=== PATIENT | male | born 1975 | race Caucasian/White ===

== ENCOUNTER 2024-01-31 15:41 | Emergency (ER) | payer OTHER, SELFPAY ==
--- NOTE | 2024-01-31 15:46 | ED.GENMED ---
ED Provider Triage
<Fatoumata Epps PA-C - Last Filed: 01/31/24 15:52>
-
Patient seen by provider in Triage?: Seen in Triage
Attestation: A medical screening examination has been initiated by a qualified medical provider. Based on the assessment performed at this time, it has been determined that an emergent medical condition may exist and the patient has been informed
that further medical evaluation and possible additional diagnostic testing may be needed.
HPI: 48yoM here with L eye blurriness since waking up this morning. Had trouble focusing earlier. Has prescription glasses but cannot find them.
GENERAL: Alert , in no apparent distress
EYE: No visual abnormalities.
NECK: Trachea midline
ENT: No visible abnormalities.
LUNGS: No acute respiratory distress
NEUROLOGICAL: Alert and oriented
SKIN: Skin intact. No visible changes.
MUSCULOSKELETAL: Moving extremities normally
PSYCH: Normal and appropriate interaction.
This is a medical evaluation conducted in person to initiate diagnostic evaluation and provide initial therapeutics. Please see further documentation by the treating clinician.
CBC, CMP, CT head, and visual acuity ordered.
History of Present Illness
<Fatoumata Epps PA-C - Last Filed: 01/31/24 15:52>
General
Chief Complaint: Visual Problem
Time Seen by Provider: 01/31/24 19:48
<Victor Hugo Delacruz DO - Last Filed: 02/01/24 20:26>
General
Source: patient
History of Present Illness
History of Present Illness:
48-year-old male presents the emergency room complaining of blurred vision. He went to his family doctor who sent him to the emergency room here. Patient has been experiencing vision changes for the past 2 to 3 weeks. He has been intending to
call an partition notcher. Today the difficulty seeing seem worse. He therefore went to his family doctor. His family doctor told him that the problems seem to be double vision and recommended he come to the emergency room. Patient does not have
any significant headache. He has no other focal neurologic complaints. He is swallowing normally. He has no shortness of breath.
Phy Exam
&;Victor Hugo Delacruz DO - Last Filed: 02/01/24 20:26>
Physical Exam
Physical Exam:
General: Awake, Alert, Oriented X3. No acute distress.
Vitals: unremarkable
Head: Atraumatic
Eyes: Pupils equal, right eye appears to have a lateral rectus palsy. Intraocular pressures are normal (17 on the right, 16 on the left). Visual acuity 20/25 bilaterally. Anterior chamber appears clear.
Throat: Airway intact, no exudates
Neck: Trachea midline
Lungs: Clear and equal b/l
Heart: Regular rate, no murmurs
Abd: Soft, Nontender, No pulsatile mass
Neuro: Right-sided lateral rectus palsy, muscle strength equal bilaterally, cerebellar exam normal
Skin: Warm, dry, no rash
Extremities: pulses equal b/l, no edema
Course
<Fatoumata Epps PA-C - Last Filed: 01/31/24 15:52>
Orders/Labs/Results
Orders:
Orders
01/31/24 15:49
CT Head W/o Iv Contrast Urgent
Comment:
Reason For Exam: blurred vision
Visual Acuity- Treatment ONCE
01/31/24 15:56
Complete Blood Count/With Diff Urgent
Comprehensive Metabolic Panel Urgent
Abnormal Lab Results
01/31/24
15:56
Abs Immat Gran (auto) 0.1 H 10^3/uL
(0-0.05)
Absolute Monos (auto) 0.8 H 10^3/uL
(0.1-0.6)
BUN 21 H mg/dl
(9-20)
AST 73 H U/L
(17-59)
ALT 113 H U/L
(0-50)
01/31/24 15:56
01/31/24 15:56
Vital Signs
Initial and Last Documented VS:
Initial Vital Signs
Temp Pulse Resp Pulse Ox
97.9 F 85 18 98
01/31/24 15:46 01/31/24 15:46 01/31/24 15:46 01/31/24 15:46
Last Documented Vital Signs
Temp Pulse Resp BP Pulse Ox
97.9 F 75 18 149/95 96
01/31/24 15:46 01/31/24 21:19 01/31/24 21:19 01/31/24 21:19 01/31/24 21:19
Michellelt;Victor Hugo Delacruz, - Last Filed: 02/01/24 20:26>
Orders/Labs/Results
Orders:
Orders
01/31/24 15:49
CT Head W/o Iv Contrast Urgent
Comment:
Reason For Exam: blurred vision
Visual Acuity- Treatment ONCE
01/31/24 15:56
Complete Blood Count/With Diff Urgent
Comprehensive Metabolic Panel Urgent
Abnormal Lab Results
01/31/24
15:56
Abs Immat Gran (auto) 0.1 H 10^3/uL
(0-0.05)
Absolute Monos (auto) 0.8 H 10^3/uL
(0.1-0.6)
BUN 21 H mg/dl
(9-20)
AST 73 H U/L
(17-59)
ALT 113 H U/L
(0-50)
01/31/24 15:56
01/31/24 15:56
Vital Signs
Initial and Last Documented VS:
Initial Vital Signs
Temp Pulse Resp Pulse Ox
97.9 F 85 18 98
01/31/24 15:46 01/31/24 15:46 01/31/24 15:46 01/31/24 15:46
Last Documented Vital Signs
Temp Pulse Resp BP Pulse Ox
97.9 F 75 18 149/95 96
01/31/24 15:46 01/31/24 21:19 01/31/24 21:19 01/31/24 21:19 01/31/24 21:19
<Victor Hugo Delacruz DO - Last Filed: 02/01/24 20:26>
MDM/Problems Addressed
Differential Diagnosis Includes:
Glaucoma, diplopia from lateral rectus palsy, ophthalmologic myasthenia gravis, CVA
MDM/Problems Addressed:
Work appears unremarkable. Patient has no other focal neurologic deficits to suggest a central event. Intraocular pressures are normal. I do sense the patient has lateral rectus palsy on exam. Discussed with ophthalmology on-call, Dr. Ferrer and
she will have the patient seen in the office as soon as possible. Patient does not carry diagnosis of hypertension however he has moderate hypertension here in the emergency room. He tells me his primary care doctor has been monitoring his blood
pressure.
<Victor Hugo Delacruz DO - Last Filed: 02/01/24 20:26>
*Radiology
Radiology exam reviewed: radiology read reviewed
*Pulse Oximetry
Patient hypoxic: no
*Critical Care Note
Total Time (30-74mins, 75-104mins- exclusive of procedures): Not Applicable
ED Attending Note
<Fatoumata Epps PA-C - Last Filed: 01/31/24 15:52>
-
Portions of this chart may have been created with voice recognition software.� Occasional wrong word or��sound alike� substitutions may have occurred due to the inherent limitations of voice recognition software.
Discharge Plan
Departure
Patient Disposition: Home (Routine Discharge)
Date of Disposition: 01/31/24
Time of Disposition: 21:04
Patient with high blood pressure during this ER visit?: Yes
Condition: Good
Discharge Problem:
Diplopia, Lateral rectus muscle paralysis
Instructions: Double Vision (DC)
Referrals:
Aggie Ferrer MD [Active] -
Activity Restrictions/Additional Instructions:
I believe your vision change is related to abnormal movement of the muscles of your right eye. You need to follow up with a eye doctor for further evaluation. I have given you contact information for the eye doctor I spoke to deneen. Call first
thing in the morning and let the office know you were seen in the ER and Dr. Ferrer wanted you to be seen in the office as soon as possible. Your liver function tests area mildly elevated and should be rechecked by your doctor in the month or so.
Interventions
Interventions:
*Risk Screen - Suicide Last Done: 01/31/24 21:18
*General Assessment Last Done: 01/31/24 15:47
*Neglect/Abuse Screening Last Done: 01/31/24 21:18
*Nursing Disposition Last Done: 01/31/24 21:19
ED- Neurological Assessment Last Done: 01/31/24 21:18
Discharge Date and Time
Discharge Date/Time: 01/31/24 21:20
Print Language: THAI
[2024-01-31 15:49] VITALS: BP 156/102
[2024-01-31 16:05] LABS: % Basophils 0.9 % (0-2); % Eosinophils 2.6 % (0-6); % Immature Granulocytes 0.5 % (0-0.5); % Lymphocytes 24.1 % (20.5-51.1); % Monocytes 9.2 % (1.7-9.3); % Neutrophils 62.7 % (42.2-75.2); Absolute Basophils 0.1 10^3/uL (0-0.2); Absolute Eosinophils 0.2 10^3/uL (0-0.7); Absolute Immature Granulocytes 0.1 10^3/uL (0-0.05); Absolute Lymphocytes 2.2 10^3/uL (1.2-3.4); Absolute Monocytes 0.8 10^3/uL (0.1-0.6); Absolute Neutrophils 5.7 10^3/uL (1.4-6.5); Hematocrit 43.4 % (39.0-52.0); Mean Corp Hgb Conc. 34.6 g/dL (33.0-37.0); Mean Corpuscular Hgb 30.4 pg (27.0-31.0); Mean Platelet Volume 9.7 fL (7.4-10.4); Nucleated Red Blood Cells % 0 % (-); Platelet Count 282 10^3/uL (130-400); Red Blood Cell Count 4.93 10^6/uL (4.70-6.10); White Blood Cell Count 9.1 10^3/uL (4.8-10.8)
[2024-01-31 16:19] LABS: ALT (SGPT) 113 U/L (0-50); AST (SGOT) 73 U/L (17-59); Albumin 4.9 g/dl (3.5-5.0); Alkaline Phosphatase 75 U/L (38-126); Blood Urea Nitrogen 21 mg/dl (9-20); Calcium 9.2 mg/dl (8.4-10.2); Carbon Dioxide 29 mmol/L (22-30); Chloride 99 mmol/L (98-107); Glucose 96 mg/dl (70-99); Potassium 3.9 mmol/L (3.5-5.1); Sodium 140 mmol/L (135-145); Total Bilirubin 0.4 mg/dl (0.2-1.3); Total Protein 7.9 g/dl (6.3-8.2); eGFR > 60.00
[2024-01-31 21:19] VITALS: BP 149/95
== END 2024-01-31 21:20 | disposition home or self-care (01) ==
LOC: EMR 15:41
PROVIDERS: Physician Assistant; EMERGENCY PHYSICIAN Emergency Medicine; FAMILY PHYSICIAN Family Medicine
DX: H49.881 Other paralytic strabismus, right eye (principal); R03.0 Elevated blood-pressure reading, without diagnosis of hypertension
CPT/HCPCS: 99284; 70450; 80053; 85025